=== PATIENT | male | born 1980 | race Caucasian/White ===

== ENCOUNTER 2022-05-21 06:31 | Emergency (ER) | payer SELFPAY ==
[2022-05-21] MEDS ORDERED: Midazolam 1 MG/ML 2 ML SDV IM ONE (07:11)
[2022-05-21] MEDS ORDERED: Baclofen 10 MG Tab PO ONE (07:11)
[2022-05-21] MEDS ORDERED: Ketorolac 15 MG/ML SDV IM ONE (07:11)
[2022-05-21] MEDS ORDERED: Ketorolac 15 MG/ML SDV ONE (07:35)
== END 2022-05-21 09:50 | disposition home or self-care (01) ==
LOC: JD.ED 06:31
DX: M54.16 Radiculopathy, lumbar region (principal); F17.210 Nicotine dependence, cigarettes, uncomplicated; Z88.5 Allergy status to narcotic agent
CPT/HCPCS: 96372; 99284; J1885; J2250